=== PATIENT | female | born 1950 | race Caucasian/White ===

== ENCOUNTER 2018-09-03 12:51 | Outpatient (CLI) | payer MEDICARE, BC ==
--- NOTE | 2018-09-03 16:01 | PET ---
RADIONUCLIDE PET SCAN WITH CT ATTENUATION CORRECTION: HISTORY: Cholangiocarcinoma with surgical resection. COMPARISON: Images from prior exams are not available for comparison. A report is provided from a CT chest, abdomen, pelvis from [facility] dated 08/20/2018. FINDINGS: Physiologic uptake of radiotracer throughout the enteric system and along each urinary tract. Small g roundglass and solid nodules within each lung, correlating with those described on recent CT report, are visualized on the nondiagnostic CT attenuation correction images, measuring up to 1.0 cm at the left posterolateral lung base. No hypermetabolic activity is detected in these areas of nodules. Immediately deep to the left anterior abdominal wall, anterior to the gastric antrum, and im mediately medial to the remaining inferior left liver lobe tip, a homogeneous well-circumscribed low density nodule measuring 1.7 cm width on today's exam, correlates with the abnormality on recent report. Uptake is demonstrated on the PET scan. A portocaval lymph node on today's exam that is 2.2 cm length x 1.1 cm width shows increased uptake w ith a maximum SUV of 5.6. The other lymph nodes described on the prior exam do not show increased uptake. Nondilated loops of bowel occupy the space in the right upper quadrant where the right liver lobe has been resected. No peritoneal seeding or other omental masses are reliably demonstrated. At the dome of the urinary bladder, peritoneal seeding is not reliably demonstrated on today's exam. No hype rmetabolic activity visible. IMPRESSION: 1. Extensive postoperative changes. Hypermetabolic activity limited to an enlarged portocaval lymph node. 2. The small lung nodules and other areas of concern within the abdomen do not demonstrate increased activity. Transcribed Date/Time: 09/03/2018 4:24 PM
== END 2018-09-03 12:52 | disposition home or self-care (01) ==
LOC: PET 12:51
PROVIDERS: ATTEND Internal Medicine Hematology & Oncology
DX: C24.8 Malignant neoplasm of overlapping sites of biliary tract (principal); R91.8 Other nonspecific abnormal finding of lung field; R59.0 Localized enlarged lymph nodes; Z98.890 Other specified postprocedural states
CPT/HCPCS: 78815; A9552

== ENCOUNTER 2019-02-10 08:32 | Outpatient (CLI) | payer MEDICARE, BC ==
[2019-02-10 09:10] LABS: Estimated GFR-MDRD - POC Greater than 90
--- NOTE | 2019-02-10 11:55 | CT ---
CT CHEST WITH IV CONTRAST CT ABDOMEN WITH IV CONTRAST CT PELVIS WITH IV CONTRAST: HISTORY: Cholangiocarcinoma. COMPARISON: 11/12/2018 from [facility]. FINDINGS: No evidence of mediastinal, hilar, or axillary mass or lymphadenopathy is seen. No pleural or perica rdial effusions are identified. Interval increase in size of multiple parenchymal pulmonary nodules has occurred in the interim. The se measure 12 mm and 15 mm in the right upper lobe, 14 and 10 mm in the right lower lobe, and 14 and 15 mm in the left lower lobe. The other nodules are stable. There are postop changes of cholecystectomy and right hepatectomy. No suspicious mass is seen in the liver remnant. The pancreas, spleen, and adrenal glands and kidneys are normal. The approximately 1 cm portocaval lymph node is stable. A 1 cm right inferior phrenic lymph node is stable. Omental nodularity is stable. Postop changes of right hemicolectomy and hysterectomy are again seen. No free air or free fluid is noted. There is colonic diverticulosis. A 4 cm left adnexal cystic mass is likely ovarian. This is new since the last exam. There are vascular calcifications without evidence of aneurysmal dilatation of the thoracoabdominal a keith. Degenerative changes are seen in the spine. No osteolytic or osteoblastic lesions are seen. IMPRESSION: 1. Interval worsening of pulmonary metastases since 11/12/2018. 2. New 4 cm left adnexal cyst mass is likely ovarian in origin. Pelvic ultrasound is recommended. POS: JOCELYN
[2019-02-10] MEDS ORDERED: Iopamidol 370 76% 100 ML VIAL ONE (13:49)
== END 2019-02-10 08:33 | disposition home or self-care (01) ==
LOC: CT 08:32
PROVIDERS: ATTEND Internal Medicine Hematology & Oncology
DX: C24.8 Malignant neoplasm of overlapping sites of biliary tract (principal); C78.00 Secondary malignant neoplasm of unspecified lung; N83.8 Other noninflammatory disorders of ovary, fallopian tube and broad ligament
CPT/HCPCS: 71260; 74177; 82565; Q9967

== ENCOUNTER 2019-02-12 10:57 | Outpatient (CLI) | payer MEDICARE, BC ==
[2019-02-12 12:50] LABS: #Lymphocytes 0.8 thou/uL (1.20-3.40); #Monocytes 1.2 thou/uL (0.11-0.59); #Neutrophils 17.6 thou/uL (1.40-6.50); %Eosinophils 0.3 % (0.0-10.0); %Lymphocytes 3.8 % (21.0-51.0); %Neutrophils 89.9 % (42.0-75.0); Hemoglobin 11.3 g/dL (12.0-16.0); Mean Corpuscular HGB CONC 33.7 g/dL (32.0-36.0); Mean Corpuscular Hemoglobin 31.7 pg (27.0-31.0); Mean Corpuscular Volume 94.3 fL (78.0-98.0); Mean Platelet Volume 7.7 fL (7.4-10.4); Platelet Count 275 thou/uL (130-400); RBC Distribution Width 16.6 % (11.5-14.5); Red Blood Cell (RBC) Count 3.55 mill/uL (4.20-5.40); White Blood Cell (WBC) Count 19.6 thou/uL (4.8-10.8)
== END 2019-02-12 10:58 | disposition home or self-care (01) ==
LOC: LABBT 10:57
PROVIDERS: ATTEND Surgery
DX: Z01.812 Encounter for preprocedural laboratory examination (principal); C22.1 Intrahepatic bile duct carcinoma
CPT/HCPCS: 85025

== ENCOUNTER 2019-02-17 12:17 | Day surgery (SDC) | payer MEDICARE, BC ==
[2019-02-12 11:46] VITALS: BMI 38.0
[~2019-02-17 12:17] MED LIST: PROPOFOL 200 MG/20 ML VIAL ONE
[2019-02-17] MEDS ORDERED: Bupivacaine PF 0.5% 30 ML VIAL ONE (15:32)
[2019-02-17] MEDS ORDERED: Lidocaine 2% PF 5 ML VIAL ONE (15:32)
[2019-02-17] MEDS ORDERED: Fentanyl 100 MCG/2 ML VIAL ONE (15:39)
[2019-02-17] MEDS ORDERED: Midazolam HCl 2 mg/2 ml Vial ONE (15:39)
[2019-02-17] MEDS ORDERED: Levofloxacin 500 mg/D5W 100 ml Premix Bag ONE (15:45)
--- NOTE | 2019-02-17 17:16 | RAD ---
Portable frontal chest radiograph: 02/17/2019 COMPARISON: 01/29/2007 HISTORY: Mediport placement FINDINGS: Subtle nodular densities are suspected within both lungs, better evaluated on CT examinatio n of the chest performed 02/10/2019, suspicious for metastatic disease. No pneumothorax, pleural fluid, lobar consolidation, or alveolar edema. CT injectable right-sided Port-A-Cath present with dis javi tip overlying the region of the cavoatrial junction. IMPRESSION: Subtle pulmonary nodule suggest metastatic disease. Right sided Port-A-Cath with no pneum othorax.
--- NOTE | 2019-02-18 12:52 | OP ---
DATE OF PROCEDURE: 02/17/2019 PREOPERATIVE DIAGNOSIS: Cholangiocarcinoma. POSTOPERATIVE DIAGNOSIS: Cholangiocarcinoma. PROCEDURE PERFORMED: Tunneled central line subcutaneous port (MediPort CT injectable). ANESTHESIA: General. ESTIMATED BLOOD LOSS: Minimal. COMPLICATIONS: None. FINDINGS: Tip of the catheter was at the atriocaval junction. DESCRIPTION OF PROCEDURE: The patient was taken to the operating room and laid supine on the operating room table. After general anesthetic was obtained, bilateral neck and chest were prepped and draped in a sterile fashion. Local was injected over the right internal jugular vein. Ultrasound-guided was used to cannulate the internal jugular vein with a Seldinger needle. Wire was passed into the superior vena cava under fluoro guidance. A small manda was made at the wire entrance site. A separate 3 cm incision was made in the right upper chest. Subcutaneous pocket was made below lower incision. Tubing for the MediPort tunneled from the inferior to superior incision and suture sheath was placed over the wire into the superior vena cava under fluoro guidance. The dilator and wire were removed. The end of the catheter sewed into the sheath. The sheath was peeled away. The tip of the catheter was at the atriocaval junction. MediPort tubing was cut to fit the MediPort at lower incision, connected to the MediPort, which was sewn to the chest wall in the subcutaneous pocket using Prolene. The MediPort was flushed and pily blood without difficulties, flushed with a heparin flush. All incisions were irrigated and closed using 4-0 Monocryl and Dermabond. The patient was sent to Recovery in stable condition. All sponge counts, needle counts, and lap counts were correct. Job ID: [id number]
== END 2019-02-17 17:58 | disposition home or self-care (01) ==
LOC: SDC 12:17
PROVIDERS: ATTEND Surgery
PROC: 02HV33Z Insertion of Infusion Device into Superior Vena Cava, Percutaneous Approach (ICD-10-PCS; principal; 2019-02-17)
DX: C22.1 Intrahepatic bile duct carcinoma (principal); E78.00 Pure hypercholesterolemia, unspecified; F17.200 Nicotine dependence, unspecified, uncomplicated; Z79.899 Other long term (current) drug therapy; Z88.0 Allergy status to penicillin; Z91.041 Radiographic dye allergy status
CPT/HCPCS: 36561; 71045; 76000; C1788; J0690; J1642; J1956; J2001; J2250; J2704; J3010; S0020

== ENCOUNTER 2019-04-13 08:18 | Outpatient (CLI) | payer MEDICARE, BC ==
--- NOTE | 2019-04-13 11:03 | CT ---
EXAM: CT of the chest with contrast CT of the abdomen and pelvis with contrast HISTORY: Malignant neoplasm of the biliary tract COMPARISON: 02/10/2019 TECHNIQUE: 1. Multiple contiguous axial images were obtained in a CT the chest with contrast. Coronal and sagitt al reformats were performed. 2. Multiple contiguous axial images were obtained and a CT of the abdomen and pelvis with contrast. O ral contrast was administered. Coronal and sagittal reformats were performed. FINDINGS: CT CHEST: HEART: Normal in size without focal cardiac abnormality MEDIASTINUM: No hilar or mediastinal lymphadenopathy. LUNGS: Scattered nodules are seen in both lungs. These are stable in number but all appear to have in creased in size. The largest is seen in the right middle lobe measuring 3.2 cm in size. PLEURAL SPACE: No pneumothorax or pleural effusion. CHEST WALL SOFT TISSUES: Right-sided Mediport with its tip in the superior vena cava. CT ABDOMEN/PELVIS: ABDOMEN: LIVER: Post surgical changes from right lobectomy. No focal liver masses seen. BILE DUCTS: Normal caliber. GALLBLADDER: Removed. PANCREAS: within normal limits. SPLEEN: within normal limits. ADRENALS: within normal limits. KIDNEYS: within normal limits. PELVIS: REPRODUCTIVE ORGANS: Status post hysterectomy. There are stable well-circumscribed fluid density stru ctures along the left pelvic sidewall measuring up to 3.4 cm in size. URETERS: within normal limits. BLADDER: within normal limits. PERITONEUM: No ascites or free air, no fluid collection. There is stable stranding and slight nodular ity along the omentum concerning for omental caking and peritoneal carcinomatosis. An area of nodularity in the lower midline of the abdomen measures 8 mm in size when it previously measured appr oximately 4 mm in size. BOWEL: Normal caliber. Scattered diverticula in the colon. MESENTERY AND RETROPERITONEUM: There is an enlarged iman hepatis lymph node measuring 2.2 cm in size . No enlarged retroperitoneal lymph nodes. VESSELS: Atherosclerotic calcifications. ABDOMINAL WALL: within normal limits. OSSEOUS STRUCTURES: No suspicious osseous lesions seen. Degenerative changes in the spine. IMPRESSION: 1. Worsening of pulmonary metastatic disease 2. Likely peritoneal carcinomatosis. 3. Diverticulosis 4. Stable fluid density structures along the left pelvic sidewall are nonspecific.
[2019-04-13] MEDS ORDERED: Iopamidol 370 76% 100 ML VIAL ONE (13:25)
== END 2019-04-13 08:19 | disposition home or self-care (01) ==
LOC: CT 08:18
PROVIDERS: ATTEND Internal Medicine Hematology & Oncology
DX: C24.8 Malignant neoplasm of overlapping sites of biliary tract (principal); C78.00 Secondary malignant neoplasm of unspecified lung; K57.90 Diverticulosis of intestine, part unspecified, without perforation or abscess without bleeding
CPT/HCPCS: 71260; 74177; Q9967

== ENCOUNTER 2019-08-09 08:35 | Outpatient (CLI) | payer MEDICARE, BC ==
[2019-08-09] MEDS ORDERED: Iopamidol 370 76% 100 ML VIAL ONE (09:22)
[2019-08-09 09:43] LABS: Hemoglobin 14.2 g/dL (12.0-16.0); Mean Corpuscular HGB CONC 32.5 g/dL (32.0-36.0); Mean Corpuscular Hemoglobin 31.1 pg (27.0-31.0); Mean Corpuscular Volume 95.6 fL (78.0-98.0); Platelet Count 91 thou/uL (130-400); RBC Distribution Width 18.6 % (11.5-14.5); Red Blood Cell (RBC) Count 4.56 mill/uL (4.20-5.40); Reflex for Review?? YES; White Blood Cell (WBC) Count 72.5 thou/uL (4.8-10.8)
[2019-08-09 09:44] LABS: ALT (SGPT) 60 U/L (8-55); AST (SGOT) 29 U/L (5-34); Albumin 4.5 g/dL (3.4-4.8); Alkaline Phosphatase 467 U/L (40-110); Anion Gap 16 mmol/L (10-20); BUN (Urea Nitrogen) 11 mg/dL (9.8-20.1); Bilirubin, Total 1.9 mg/dL (0.2-1.2); Calc. Creatinine Clearance 0 mL/min (70-130); Calcium 9.8 mg/dL (7.8-10.44); Carbon Dioxide 25 mmol/L (23-31); Chloride 99 mmol/L (98-107); Estimated GFR-MDRD 71; Globulin 2.6 g/dL (2.4-3.5); Glucose 243 mg/dL (80-115); Potassium 4.1 mmol/L (3.5-5.1); Protein, Total 7.1 g/dL (6.0-8.3); Sodium 136 mmol/L (136-145)
[2019-08-09 10:21] LABS: Band 9 % (5-11); Lymphocytes 1 % (21-51); MDiff Complete? YES; Neutrophil 90 % (42-75); Platelet Morphology Comment Appears Decreased; Polychromasia SLIGHT = 2-3 cells (100X) (0-2/hpf); Toxic Granulation SLIGHT
--- NOTE | 2019-08-09 10:38 | CT ---
EXAM: CT chest, abdomen, and pelvis with IV contrast: HISTORY: Biliary cancer with metastatic disease. History of partial hepatectomy. Malignant neoplasm of overlap ping sites of biliary tract. COMPARISON: 04/13/2019 FINDINGS: CT THORAX: Lungs: Again noted are multiple scattered nodular opacity seen throughout the lungs bilaterally which are unchanged in number or size compared to the prior exam. No new pulmonary opacities or pulmonary nodules are appreciated. Pleura: No pleural effusion. Lymph nodes: No lymphadenopathy. Mediastinum: Vascular calcifications are seen in the coronary arteries. Mild atherosclerotic plaque a nd calcifications are seen in the thoracic aorta. A right internal jugular vein Mediport catheter is partially imaged. Chest wall: No abnormalities CT ABDOMEN AND PELVIS: Liver: Postoperative changes related to right lobectomy are again noted. There is hypertrophy of the left hepatic lobe. No focal hepatic lesion is visualized. Gallbladder: Surgically absent.\ Pancreas: Within normal limits. Spleen:Mildly enlarged measuring 14 cm in craniocaudal dimensions. Adrenal glands: Within normal limits. Kidneys: Within normal limits. Urinary Bladder: The urinary bladder is unremarkable. Reproductive organs: Evidence of hysterectomy. Left adnexal cystic structure is again seen measuring 2.4 cm. Cystic structure just superior to this location is no longer seen, but there is now a soft tissue density focus in this region measuring 2.2 cm x 1.3 cm. Bowel: Colonic diverticulosis is again present. Loops of small bowel are normal in caliber. Adenopathy:No lymphadenopathy within the abdomen or pelvis. Peritoneum/retroperitoneum: As noted on the prior examination, there is soft tissue density with stra nding and nodularity seen in the anterior aspect of the abdomen and pelvis with largest area of nodularity again present in the anterior pelvis. Findings are again concerning for peritoneal carcino matosis which has mildly progressed when compared to the prior exam. Again noted is a mildly enlarged lymph node in the periportal region with largest area of soft tissue density seen just super ior to the pancreatic head measuring 2.9 cm x 1.6 cm. Superior to this region and just superior to the origin of celiac artery is a mildly prominent lymph node seen measuring 1.2 cm in short axis dime nsion. Abdominal wall: Mild postsurgical scarring supraumbilical location. A 2.4 cm hypodense lesion is agai n seen between the pectineus and obturator externus muscles is unchanged in size or appearance compared to prior study as well as PET/CT exam on 09/03/2018. This is overall nonspecific and only demo nstrate minimal FDG avidity on the study in 2019. Osseous structures: No suspicious lytic or sclerotic osseous lesions are identified. IMPRESSION: 1. Mild worsening of peritoneal carcinomatosis. 2. Overall stable pulmonary nodular opacities/metastatic lesions scattered throughout the lungs bilat erally. 3. Resolution of one of the left adnexal cystic appearing structures with a soft tissue nodule now pr esent in this region measuring 2.2 cm in greatest dimension which could be related to a metastatic lesion. 4. Colonic diverticulosis. 5. Postoperative changes as described above. 6. Mild splenomegaly. 7. Mildly enlarged lymph node just superior to the level of the pancreatic head with a closely adjace nt lymph node present which appears contained calcification.
== END 2019-08-09 08:36 | disposition home or self-care (01) ==
LOC: CT 08:35
PROVIDERS: ATTEND Internal Medicine Hematology & Oncology
DX: C24.8 Malignant neoplasm of overlapping sites of biliary tract (principal); C78.6 Secondary malignant neoplasm of retroperitoneum and peritoneum; R91.8 Other nonspecific abnormal finding of lung field; N83.8 Other noninflammatory disorders of ovary, fallopian tube and broad ligament; K57.30 Diverticulosis of large intestine without perforation or abscess without bleeding; R16.1 Splenomegaly, not elsewhere classified; R59.0 Localized enlarged lymph nodes; Z98.890 Other specified postprocedural states
CPT/HCPCS: 36415; 71260; 74177; 80053; 85025; 85060; 86301; Q9967

== ENCOUNTER 2020-10-17 07:15 | Observation (INO) | payer MEDICARE, BC ==
[2020-10-17] MEDS ORDERED: Ondansetron PF 4 MG/2 ML Vial ONE (07:53)
[2020-10-17] MEDS ORDERED: methylPREDNISolone Sod Succ/PF 125 MG/2 ML VIAL ONE (07:53)
[2020-10-17] MEDS ORDERED: Morphine 4 MG/ML VIAL ONE (07:53)
[2020-10-17] MEDS ORDERED: diphenhydrAMINE 50 MG/ML VIAL ONE (07:54)
[2020-10-17 08:15] LABS: #Lymphocytes 0.6 thou/uL (1.20-3.40); #Monocytes 0.5 thou/uL (0.11-0.59); #Neutrophils 10.7 thou/uL (1.40-6.50); %Basophils 0.2 % (0.0-1.0); %Eosinophils 0.3 % (0.0-10.0); %Lymphocytes 4.7 % (21.0-51.0); %Neutrophils 90.9 % (42.0-75.0); Hemoglobin 12.5 g/dL (12.0-16.0); Mean Corpuscular HGB CONC 33.1 g/dL (32.0-36.0); Mean Corpuscular Hemoglobin 31.1 pg (27.0-31.0); Mean Corpuscular Volume 93.9 fL (78.0-98.0); Mean Platelet Volume 8.9 fL (7.4-10.4); Platelet Count 148 thou/uL (130-400); White Blood Cell (WBC) Count 11.8 thou/uL (4.8-10.8)
[2020-10-17 08:35] LABS: ALT (SGPT) 17 U/L (8-55); AST (SGOT) 27 U/L (5-34); Albumin 3.4 g/dL (3.4-4.8); Alkaline Phosphatase 220 U/L (40-110); Anion Gap 10 mmol/L (10-20); BUN (Urea Nitrogen) 9 mg/dL (9.8-20.1); Calc. Creatinine Clearance 0 mL/min (70-130); Calcium 8.8 mg/dL (7.8-10.44); Carbon Dioxide 28 mmol/L (23-31); Chloride 97 mmol/L (98-107); Globulin 2.5 g/dL (2.4-3.5); Glucose 123 mg/dL (80-115); Lipase 5 U/L (8-78); Potassium 3.3 mmol/L (3.5-5.1); Protein, Total 5.9 g/dL (5.8-8.1); Sodium 132 mmol/L (136-145)
[2020-10-17] MEDS ORDERED: Iopamidol-370 76% 500 ML 1 ML ONE (09:00)
[2020-10-17 09:14] LABS: RBC Count-Automated (BF) 180 /cu.mm; WBC/Nucleated-Auto (BF) 330 uL
[2020-10-17 09:20] LABS: Bilirubin Negative (Negative); Blood, Urine Negative (Negative); Calcium Oxalate Crystals 4+ HPF (None Seen); Clarity Turbid (Clear); Glucose, Urine (Dipstick) Normal (Negative); Ketone, Urine Negative (Negative); Leukocyte 25 Leu/uL (Negative); Nitrite Negative (Negative); Protein, Urine (Dipstick) 50 mg/dL (Neg-Trace); RBC/HPF 0-3 HPF (0-3); Specific Gravity, Urine 1.042 (1.002-1.036); Urobilinogen 6 mg/dL (Less than 2); WBC/HPF 21-50 HPF (0-3)
[2020-10-17 09:21] LABS: BF Color Yellow; Body Fluid Source Peritoneal Fluid; Clarity Hazy (Clear); Tube # EDTA
[2020-10-17 09:23] LABS: Bacteria/HPF 1+ HPF (None Seen)
[2020-10-17 09:52] LABS: BF Segmented Neutrophils 4 %; Cell Count Non Hematic 14 %; Lymphocytes 82 %
[2020-10-17] MEDS ORDERED: cefTRIAXone\\ROCEPHIN 1 GM VIAL ONE (10:41)
[2020-10-17] MEDS ORDERED: Benzocaine 20% Spray 60 ML CAN ONE (11:29)
[2020-10-17] MEDS ORDERED: Midazolam HCl 2 mg/2 ml Vial ONE (11:29)
[2020-10-17] MEDS ORDERED: HumaLOG 300 UNITS/3 ML VIAL SC PRN ×2 (12:11)
[2020-10-17] MEDS ORDERED: Dextrose 50% Abboject 50 ML SYRINGE SLOW IVP PRN (12:11)
[2020-10-17] MEDS ORDERED: Dextrose 5% in Water 1,000 ML IV PRN (12:11)
[2020-10-17 12:51] LABS: Bacteria/HPF None Seen HPF (None Seen); Bilirubin Negative (Negative); Blood, Urine Negative (Negative); Clarity Clear (Clear); Glucose, Urine (Dipstick) Normal (Negative); Ketone, Urine Negative (Negative); Leukocyte 25 Leu/uL (Negative); Nitrite Negative (Negative); Protein, Urine (Dipstick) 10 mg/dL (Neg-Trace); RBC/HPF 0-3 HPF (0-3); Squamous Epithelial 0-3 HPF (0-3); Urobilinogen 3 mg/dL (Less than 2); pH, Urine 6.5 (5.0-9.0)
[2020-10-17 12:55] LABS: Specific Gravity, Urine Greater than 1.060 (1.002-1.036)
[2020-10-17] MEDS: Morphine 2 MG/ML VIAL SLOW IVP PRN (20:14)
[2020-10-17] MEDS: Sodium Chloride 0.9% 1,000 ML IV SCH (20:18)
[2020-10-18] MEDS: Ondansetron PF 4 MG/2 ML Vial IVP PRN ×3 (00:11→16:20)
[2020-10-18] MEDS: Morphine 2 MG/ML VIAL SLOW IVP PRN ×5 (00:12→19:57)
[2020-10-18 06:19] LABS: ALT (SGPT) 16 U/L (8-55); AST (SGOT) 26 U/L (5-34); Alkaline Phosphatase 234 U/L (40-110); BUN (Urea Nitrogen) 13 mg/dL (9.8-20.1); Bilirubin, Total 0.8 mg/dL (0.2-1.2); Calc. Creatinine Clearance 82 mL/min (70-130); Carbon Dioxide 25 mmol/L (23-31)
[2020-10-18 06:20] LABS: #Lymphocytes 0.5 thou/uL (1.20-3.40); #Monocytes 0.6 thou/uL (0.11-0.59); #Neutrophils 12.1 thou/uL (1.40-6.50); %Basophils 0.1 % (0.0-1.0); %Eosinophils 0.2 % (0.0-10.0); %Lymphocytes 3.7 % (21.0-51.0); %Monocytes 4.9 % (0.0-10.0); %Neutrophils 91.2 % (42.0-75.0); Hemoglobin 12.6 g/dL (12.0-16.0); Mean Corpuscular HGB CONC 32.8 g/dL (32.0-36.0); Mean Corpuscular Volume 94.6 fL (78.0-98.0); Mean Platelet Volume 8.8 fL (7.4-10.4); Platelet Count 194 thou/uL (130-400); RBC Distribution Width 17.2 % (11.5-14.5); Red Blood Cell (RBC) Count 4.05 mill/uL (4.20-5.40); White Blood Cell (WBC) Count 13.2 thou/uL (4.8-10.8)
[2020-10-18 06:28] LABS: Albumin 2.9 g/dL (3.4-4.8); Anion Gap 11 mmol/L (10-20); Calcium 8.3 mg/dL (7.8-10.44); Chloride 102 mmol/L (98-107); Globulin 2.4 g/dL (2.4-3.5); Glucose 104 mg/dL (80-115); Potassium 3.6 mmol/L (3.5-5.1); Protein, Total 5.3 g/dL (5.8-8.1); Sodium 134 mmol/L (136-145)
[2020-10-18] MEDS ORDERED: HYPROMELLOSE EA EYE PRN (07:14)
[2020-10-18] MEDS ORDERED: GLYCERIN EA EYE PRN (07:14)
[2020-10-18] MEDS ORDERED: DEXTRAN EA EYE PRN (07:14)
[2020-10-18] MEDS ORDERED: [UNRECOGNIZED DRUG - OTHER] EA EYE PRN (07:14)
[2020-10-18] MEDS ORDERED: GenTeal Tears Severe Dry Eye GEL 10 G EA EYE PRN (07:29)
[2020-10-18] MEDS: Enoxaparin Sodium 40 MG/0.4 ML SYRINGE SC SCH (08:20)
[2020-10-18] MEDS: Pantoprazole 40 MG VIAL IVP SCH (08:21)
[2020-10-18] MEDS: Sodium Chloride 0.9% 1,000 ML IV SCH (10:45)
[2020-10-18 16:56] VITALS: BMI 26.9
[2020-10-18] MEDS: Levothyroxine Sodium 50 MCG TAB PO SCH (19:57)
[2020-10-19] MEDS: Morphine 2 MG/ML VIAL SLOW IVP PRN ×2 (05:02→14:41)
[2020-10-19 05:26] LABS: #Lymphocytes 0.7 thou/uL (1.20-3.40); #Monocytes 1.2 thou/uL (0.11-0.59); #Neutrophils 6.7 thou/uL (1.40-6.50); %Basophils 0.1 % (0.0-1.0); %Eosinophils 0.4 % (0.0-10.0); %Monocytes 13.9 % (0.0-10.0); %Neutrophils 77.7 % (42.0-75.0); Mean Corpuscular HGB CONC 34.3 g/dL (32.0-36.0); Mean Corpuscular Hemoglobin 32.5 pg (27.0-31.0); Mean Corpuscular Volume 94.7 fL (78.0-98.0); Mean Platelet Volume 8.7 fL (7.4-10.4); Platelet Count 187 thou/uL (130-400); RBC Distribution Width 17.3 % (11.5-14.5); White Blood Cell (WBC) Count 8.6 thou/uL (4.8-10.8)
[2020-10-19 05:46] LABS: Anion Gap 11 mmol/L (10-20); BUN (Urea Nitrogen) 13 mg/dL (9.8-20.1); Calc. Creatinine Clearance 84 mL/min (70-130); Calcium 8.2 mg/dL (7.8-10.44); Carbon Dioxide 27 mmol/L (23-31); Chloride 98 mmol/L (98-107); Glucose 95 mg/dL (80-115); Potassium 3.6 mmol/L (3.5-5.1); Sodium 132 mmol/L (136-145)
[2020-10-19] MEDS: Enoxaparin Sodium 40 MG/0.4 ML SYRINGE SC SCH (08:07)
[2020-10-19] MEDS: Pantoprazole 40 MG VIAL IVP SCH (08:07)
[2020-10-19] MEDS ORDERED: Polyethylene Glycol 3350 17 GM Packet PO SCH (09:15)
[2020-10-19] MEDS: Docusate 100 MG CAP PO SCH ×2 (10:35→20:32)
[2020-10-19] MEDS: Senokot 8.6 MG TAB PO SCH ×2 (10:35→20:32)
[2020-10-19 19:16] VITALS: BP 106/58; TEMP 98
[2020-10-19] MEDS: Levothyroxine Sodium 50 MCG TAB PO SCH (20:32)
[2020-10-20] MEDS ORDERED: Polyethylene Glycol 3350 17 GM Packet PO SCH ×2 (09:00)
== END 2020-10-19 20:38 | disposition home or self-care (01) ==
LOC: ERS 07:15 → ONC 14:38
PROVIDERS: ADMIT Internal Medicine; ATTEND Nurse Practitioner Family
DX: K56.600 Partial intestinal obstruction, unspecified as to cause (principal); C24.0 Malignant neoplasm of extrahepatic bile duct; C78.7 Secondary malignant neoplasm of liver and intrahepatic bile duct; C78.00 Secondary malignant neoplasm of unspecified lung; C78.6 Secondary malignant neoplasm of retroperitoneum and peritoneum; R91.8 Other nonspecific abnormal finding of lung field; I31.3 Pericardial effusion (noninflammatory); K59.00 Constipation, unspecified; K56.0 Paralytic ileus; T40.2X5A Adverse effect of other opioids, initial encounter; E11.9 Type 2 diabetes mellitus without complications; K21.9 Gastro-esophageal reflux disease without esophagitis; E03.9 Hypothyroidism, unspecified; J90 Pleural effusion, not elsewhere classified; R18.8 Other ascites; Z87.891 Personal history of nicotine dependence; Z79.84 Long term (current) use of oral hypoglycemic drugs; Z79.899 Other long term (current) drug therapy; Z88.0 Allergy status to penicillin; Z88.8 Allergy status to other drugs, medicaments and biological substances; Z91.041 Radiographic dye allergy status
CPT/HCPCS: 51701; 71045; 74018; 74177; 80048; 80053; 82962 ×3; 83690; 85025 ×2; 87040; 87070; 87086; 87149 ×2; 87205; 89051; 93005; 96365; 96375; 97139; 99285; J2270 ×3; 36415; 36416; 81003; 81015; 84443; 85060; 96372; 96376; C9113; G0378; J0696; J1200; J1642; J1650; J2250; J2405; J2930; Q9967

== ENCOUNTER 2020-11-14 17:01 | Inpatient (IN) | payer MEDICARE, BC ==
[2020-11-14] MEDS ORDERED: HYDROcodone/Acetaminophen 10/325 mg Tablet ONE (19:47)
[2020-11-14 22:19] LABS: #Eosinphils 0.2 thou/uL (0.0-0.7); #Lymphocytes 0.5 thou/uL (1.20-3.40); #Monocytes 0.8 thou/uL (0.11-0.59); #Neutrophils 10.8 thou/uL (1.40-6.50); %Basophils 0.2 % (0.0-1.0); %Eosinophils 1.2 % (0.0-10.0); %Lymphocytes 3.7 % (21.0-51.0); %Monocytes 6.8 % (0.0-10.0); %Neutrophils 88.2 % (42.0-75.0); Hemoglobin 12.3 g/dL (12.0-16.0); Mean Corpuscular HGB CONC 35.4 g/dL (32.0-36.0); Mean Corpuscular Hemoglobin 34.2 pg (27.0-31.0); Mean Corpuscular Volume 96.4 fL (78.0-98.0); Mean Platelet Volume 8.1 fL (7.4-10.4); Platelet Count 181 thou/uL (130-400); RBC Distribution Width 15.6 % (11.5-14.5); Red Blood Cell (RBC) Count 3.59 mill/uL (4.20-5.40); White Blood Cell (WBC) Count 12.3 thou/uL (4.8-10.8)
[2020-11-14 22:36] LABS: ALT (SGPT) 21 U/L (8-55); AST (SGOT) 32 U/L (5-34); Albumin 3.6 g/dL (3.4-4.8); Alkaline Phosphatase 349 U/L (40-110); Anion Gap 14 mmol/L (10-20); BUN (Urea Nitrogen) 6 mg/dL (9.8-20.1); Bilirubin, Total 1.3 mg/dL (0.2-1.2); Calc. Creatinine Clearance 0 mL/min (70-130); Calcium 9.2 mg/dL (7.8-10.44); Carbon Dioxide 24 mmol/L (23-31); Chloride 97 mmol/L (98-107); Globulin 2.9 g/dL (2.4-3.5); Glucose 105 mg/dL (80-115); Potassium 3.7 mmol/L (3.5-5.1); Protein, Total 6.5 g/dL (5.8-8.1); Sodium 131 mmol/L (136-145)
[2020-11-14 23:30] VITALS: BMI 26.5
[2020-11-15] MEDS ORDERED: Ondansetron PF 4 MG/2 ML Vial IVP PRN (03:05)
[2020-11-15] MEDS ORDERED: Acetaminophen 325 MG TAB PO PRN (03:05)
[2020-11-15 03:07] LABS: SARS-CoV-2 NAA Rapid Test Not Detected (NotDetected)
[2020-11-15] MEDS: cefTRIAXone\\ROCEPHIN 2 GM in Sodium Chloride 0.9% 100 ML IVPB SCH (04:02)
[2020-11-15 04:04] LABS: #Eosinphils 0.1 thou/uL (0.0-0.7); #Lymphocytes 0.5 thou/uL (1.20-3.40); #Monocytes 0.8 thou/uL (0.11-0.59); #Neutrophils 10.3 thou/uL (1.40-6.50); %Basophils 0.3 % (0.0-1.0); %Lymphocytes 4.3 % (21.0-51.0); %Monocytes 7.1 % (0.0-10.0); %Neutrophils 87.3 % (42.0-75.0); Hemoglobin 11.9 g/dL (12.0-16.0); Mean Corpuscular HGB CONC 35.6 g/dL (32.0-36.0); Mean Corpuscular Hemoglobin 34.4 pg (27.0-31.0); Mean Corpuscular Volume 96.4 fL (78.0-98.0); Mean Platelet Volume 8.4 fL (7.4-10.4); Platelet Count 187 thou/uL (130-400); RBC Distribution Width 15.7 % (11.5-14.5); Red Blood Cell (RBC) Count 3.47 mill/uL (4.20-5.40); White Blood Cell (WBC) Count 11.8 thou/uL (4.8-10.8)
[2020-11-15 04:18] LABS: Anion Gap 12 mmol/L (10-20); BUN (Urea Nitrogen) 7 mg/dL (9.8-20.1); Calc. Creatinine Clearance 84 mL/min (70-130); Carbon Dioxide 24 mmol/L (23-31); Chloride 99 mmol/L (98-107); Glucose 116 mg/dL (80-115); Potassium 3.7 mmol/L (3.5-5.1); Sodium 131 mmol/L (136-145)
[2020-11-15] MEDS: Azithromycin 500 MG in Sodium Chloride 0.9% 250 ML 250 ML IVPB SCH (04:41)
[2020-11-15] MEDS ORDERED: Morphine 2 MG/ML VIAL SLOW IVP PRN (05:24)
[2020-11-15] MEDS: HYDROcodone/Acetaminophen 5/325 mg Tablet PO PRN ×3 (05:34→17:18)
[2020-11-15] MEDS ORDERED: Dextrose 50% Abboject 50 ML SYRINGE SLOW IVP PRN (15:34)
[2020-11-15] MEDS ORDERED: Dextrose 5% in Water 1,000 ML IV PRN (15:34)
[2020-11-15] MEDS ORDERED: HumaLOG 300 UNITS/3 ML VIAL SC PRN (15:39)
[2020-11-15] MEDS: Lidocaine 1% (PF) 30 ML VIAL ONE ×2 (15:40→17:22)
[2020-11-15 18:19] LABS: RBC Count-Automated (BF) 6329 /cu.mm; WBC/Nucleated-Auto (BF) 2878 uL
[2020-11-15 18:23] LABS: Pleural Fluid, Protein 4.4 g/dL
[2020-11-15 18:44] LABS: BF Color Yellow; Body Fluid Source Thoracentesis Fluid; Clarity Hazy (Clear); Tube # EDTA
[2020-11-15 19:29] LABS: BF Segmented Neutrophils 50 %; Cell Count Non Hematic 49 %; Lymphocytes 1 %
[2020-11-15] MEDS ORDERED: Enoxaparin Sodium 40 MG/0.4 ML SYRINGE SC SCH (21:00)
[2020-11-16] MEDS: cefTRIAXone\\ROCEPHIN 2 GM in Sodium Chloride 0.9% 100 ML IVPB SCH (04:18)
[2020-11-16] MEDS: HYDROcodone/Acetaminophen 5/325 mg Tablet PO PRN (04:23)
[2020-11-16 04:39] LABS: #Eosinphils 0.1 thou/uL (0.0-0.7); #Monocytes 0.8 thou/uL (0.11-0.59); #Neutrophils 10.3 thou/uL (1.40-6.50); %Basophils 0.4 % (0.0-1.0); %Eosinophils 0.9 % (0.0-10.0); %Lymphocytes 7.8 % (21.0-51.0); %Monocytes 6.4 % (0.0-10.0); %Neutrophils 84.5 % (42.0-75.0); Hemoglobin 12.1 g/dL (12.0-16.0); Mean Corpuscular HGB CONC 34.4 g/dL (32.0-36.0); Mean Corpuscular Hemoglobin 33.3 pg (27.0-31.0); Mean Corpuscular Volume 96.7 fL (78.0-98.0); Platelet Count 220 thou/uL (130-400); RBC Distribution Width 15.3 % (11.5-14.5); Red Blood Cell (RBC) Count 3.63 mill/uL (4.20-5.40); White Blood Cell (WBC) Count 12.1 thou/uL (4.8-10.8)
[2020-11-16 04:58] LABS: Anion Gap 9 mmol/L (10-20); BUN (Urea Nitrogen) 6 mg/dL (9.8-20.1); Calc. Creatinine Clearance 75 mL/min (70-130); Calcium 8.7 mg/dL (7.8-10.44); Carbon Dioxide 26 mmol/L (23-31); Chloride 100 mmol/L (98-107); Glucose 104 mg/dL (80-115); Potassium 3.8 mmol/L (3.5-5.1); Sodium 131 mmol/L (136-145)
[2020-11-16] MEDS: Azithromycin 500 MG in Sodium Chloride 0.9% 250 ML 250 ML IVPB SCH (05:01)
[2020-11-16 07:48] VITALS: BP 103/57; TEMP 98.3
== END 2020-11-16 12:25 | disposition home or self-care (01) | DRG 180 ==
LOC: ERS 17:01 → ONC 21:43
PROVIDERS: ADMIT Student in an Organized Health Care Education/Training Program; ATTEND Internal Medicine
PROC: 8E0ZXY6 Isolation (ICD-10-PCS; principal; 2020-11-14)
PROC: 0W9B3ZZ Drainage of Left Pleural Cavity, Percutaneous Approach (ICD-10-PCS; 2020-11-15)
DX: C38.4 Malignant neoplasm of pleura (principal); J18.9 Pneumonia, unspecified organism; C22.8 Malignant neoplasm of liver, primary, unspecified as to type; C78.00 Secondary malignant neoplasm of unspecified lung; J98.11 Atelectasis; J91.0 Malignant pleural effusion; E03.2 Hypothyroidism due to medicaments and other exogenous substances; Z20.822 Contact with and (suspected) exposure to COVID-19; E11.9 Type 2 diabetes mellitus without complications; K21.9 Gastro-esophageal reflux disease without esophagitis; Z90.710 Acquired absence of both cervix and uterus; Z87.891 Personal history of nicotine dependence; Z88.1 Allergy status to other antibiotic agents; Z88.0 Allergy status to penicillin; Z90.49 Acquired absence of other specified parts of digestive tract; Z79.899 Other long term (current) drug therapy; Z88.8 Allergy status to other drugs, medicaments and biological substances
CPT/HCPCS: 36415; 36416; 71045; 74176; 76705; 80048; 80053; 82945; 83615; 84145; 84157; 85025; 85060; 87040; 87070; 87205; 88112; 88305; 88313; 88341; 88342; 89051; J0456; J0696; J1642; J1650; J2001; J3490; J7050; U0002; U0005

== ENCOUNTER 2020-12-22 13:59 | Emergency (ER) | payer MEDICARE, BC ==
[~2020-12-22 13:59] MED LIST changes: +Iopamidol-370 76% 500 ML 1 ML ONE; -PROPOFOL 200 MG/20 ML VIAL ONE
[2020-12-22 15:28] LABS: ALT (SGPT) 12 U/L (8-55); AST (SGOT) 20 U/L (5-34); Albumin 3.2 g/dL (3.4-4.8); Alkaline Phosphatase 267 U/L (40-110); Anion Gap 13 mmol/L (10-20); BUN (Urea Nitrogen) 6 mg/dL (9.8-20.1); Bilirubin, Total 1.2 mg/dL (0.2-1.2); Calc. Creatinine Clearance 0 mL/min (70-130); Calcium 8.4 mg/dL (7.8-10.44); Carbon Dioxide 27 mmol/L (23-31); Chloride 95 mmol/L (98-107); Globulin 2.2 g/dL (2.4-3.5); Glucose 100 mg/dL (80-115); Lipase 5 U/L (8-78); Potassium 3.6 mmol/L (3.5-5.1); Protein, Total 5.4 g/dL (5.8-8.1); Sodium 131 mmol/L (136-145)
[2020-12-22 15:28] LABS: Bacteria/HPF None Seen HPF (None Seen); Bilirubin Negative (Negative); Blood, Urine Negative (Negative); Clarity Clear (Clear); Glucose, Urine (Dipstick) Normal (Negative); Ketone, Urine Negative (Negative); Leukocyte 25 Leu/uL (Negative); Nitrite Negative (Negative); Protein, Urine (Dipstick) Negative (Neg-Trace); Specific Gravity, Urine 1.006 (1.002-1.036); Squamous Epithelial 0-3 HPF (0-3); Urobilinogen Normal mg/dL (Less than 2); WBC/HPF 0-3 HPF (0-3); pH, Urine 6.5 (5.0-9.0)
[2020-12-22 15:30] LABS: #Eosinphils 0.1 thou/uL (0.0-0.7); #Lymphocytes 0.6 thou/uL (1.20-3.40); #Monocytes 1.4 thou/uL (0.11-0.59); #Neutrophils 14.8 thou/uL (1.40-6.50); %Basophils 0.1 % (0.0-1.0); %Eosinophils 0.7 % (0.0-10.0); %Lymphocytes 3.3 % (21.0-51.0); %Monocytes 8.2 % (0.0-10.0); %Neutrophils 87.7 % (42.0-75.0); Hemoglobin 9.3 g/dL (12.0-16.0); Mean Corpuscular HGB CONC 31.2 g/dL (32.0-36.0); Mean Corpuscular Hemoglobin 29.8 pg (27.0-31.0); Mean Corpuscular Volume 95.8 fL (78.0-98.0); Mean Platelet Volume 8.3 fL (7.4-10.4); Platelet Count 227 thou/uL (130-400); RBC Distribution Width 15.8 % (11.5-14.5); White Blood Cell (WBC) Count 16.8 thou/uL (4.8-10.8)
== END 2020-12-22 15:05 | disposition home or self-care (01) ==
LOC: ERS 13:59
DX: K59.00 Constipation, unspecified (principal); Z85.05 Personal history of malignant neoplasm of liver; Z85.118 Personal history of other malignant neoplasm of bronchus and lung; Z85.89 Personal history of malignant neoplasm of other organs and systems; Z79.899 Other long term (current) drug therapy
CPT/HCPCS: 74177; 80053; 81001; 83690; 85025; 99284; Q9967

== ENCOUNTER 2021-01-02 09:36 | Emergency (ER) | payer MEDICARE, BC ==
[2021-01-02 12:11] LABS: #Eosinphils 0.1 thou/uL (0.0-0.7); #Lymphocytes 0.7 thou/uL (1.20-3.40); #Neutrophils 16.8 thou/uL (1.40-6.50); %Basophils 0.2 % (0.0-1.0); %Eosinophils 0.7 % (0.0-10.0); %Lymphocytes 3.9 % (21.0-51.0); %Monocytes 5.2 % (0.0-10.0); Hemoglobin 10.6 g/dL (12.0-16.0); Mean Corpuscular HGB CONC 32.4 g/dL (32.0-36.0); Mean Corpuscular Hemoglobin 30.8 pg (27.0-31.0); Mean Corpuscular Volume 95.2 fL (78.0-98.0); Mean Platelet Volume 8.4 fL (7.4-10.4); Platelet Count 234 thou/uL (130-400); RBC Distribution Width 16.8 % (11.5-14.5); Red Blood Cell (RBC) Count 3.43 mill/uL (4.20-5.40); White Blood Cell (WBC) Count 18.6 thou/uL (4.8-10.8)
[2021-01-02 12:44] LABS: ALT (SGPT) 9 U/L (8-55); AST (SGOT) 26 U/L (5-34); Albumin 3.2 g/dL (3.4-4.8); Alkaline Phosphatase 274 U/L (40-110); Anion Gap 13 mmol/L (10-20); BUN (Urea Nitrogen) 7 mg/dL (9.8-20.1); Bilirubin, Total 0.9 mg/dL (0.2-1.2); Calc. Creatinine Clearance 0 mL/min (70-130); Carbon Dioxide 27 mmol/L (23-31); Chloride 98 mmol/L (98-107); Globulin 3.1 g/dL (2.4-3.5); Glucose 90 mg/dL (80-115); Lipase 6 U/L (8-78); Magnesium 1.8 mg/dL (1.6-2.6); Potassium 3.5 mmol/L (3.5-5.1); Protein, Total 6.3 g/dL (5.8-8.1); Sodium 134 mmol/L (136-145)
[2021-01-02 23:48] LABS: SARS-CoV-2 PCR by NAA Not Detected (NotDetected)
== END 2021-01-02 15:33 | disposition home or self-care (01) ==
LOC: ERS 09:36
DX: R18.0 Malignant ascites (principal); C79.89 Secondary malignant neoplasm of other specified sites; C78.2 Secondary malignant neoplasm of pleura; C79.51 Secondary malignant neoplasm of bone; C18.9 Malignant neoplasm of colon, unspecified; Z20.822 Contact with and (suspected) exposure to COVID-19; Z79.899 Other long term (current) drug therapy
CPT/HCPCS: 71045; 71250; 74177; 80053; 83690; 83735; 83880; 84484; 85025; 93005; U0003; U0005